=== PATIENT | male | born 1990 | race Caucasian/White ===

== ENCOUNTER → 2018-12-21 | Emergency (ER) | payer BC ==
[~2018-12-21] VITALS: Ht 177.8 cm; Wt 83.9 kg
[~2018-12-21] MED LIST: DICLOFENAC SODI75 MG PO
== END ==
LOC: ED 21:29
DX: M25.551 Pain in right hip (principal); Z88.0 Allergy status to penicillin
CPT/HCPCS: 73502; 80053; 81001; 83690; 85025; 99284